=== PATIENT | male | born 1985 | race African-American/Black ===

== ENCOUNTER 2018-12-11 12:15 | Emergency (ER) | payer SELFPAY ==
[~2018-12-11] VITALS: Ht 180.3 cm; Wt 65.8 kg
[2018-12-11 13:15] VITALS: BP 130/81
[2018-12-11] MEDS ORDERED: NAPROXEN 500 MG TABLET PO STA (13:55)
[2018-12-11] MEDS ORDERED: HYDROcodone/APAP 5/325MG 1 TAB TABLET PO ONE (14:00)
[2018-12-11] MEDS ORDERED: AMOX875T PO (14:02)
[2018-12-11] MEDS ORDERED: HYDR-3164 PO (14:02)
--- NOTE | 2018-12-11 14:02 | PHYS DOC ---
Past Medical History Past Medical History: No Pertinent History Past Surgical History: No Surgical History Alcohol Use: None Drug Use: None Adult General Chief Complaint Chief Complaint: DENTAL PROBLEM HPI HPI Patient is a 33 year old male who presents to the ED today complaining of 8 out of 10 left lower gum dental pain that has been going on for 3 days. Patient denies any fever or trismus. He states he has been ashamed of he is teeth until the situation got worse. Review of Systems Review of Systems Constitutional: Denies fever or chills [] HENT: Reports left lower gum dental pain Musculoskeletal: Denies back pain or joint pain [] Integument: Denies rash or skin lesions [] Neurologic: Denies headache, focal weakness or sensory changes [] All other systems were reviewed and found to be within normal limits, except as documented in this note. Allergies Allergies Allergies Coded Allergies Type Severity Reaction Last Updated Verified No Known Drug Allergies 12/11/18 No Physical Exam Physical Exam Constitutional: Well developed, well nourished, no acute distress, non-toxic appearance. [] ENT: Teeth #17, 18, 19, 20 severely decayed. Tooth #18 are 20 are broken no gum erythema, no gum swelling. Skin: Warm, dry, no erythema, no rash. [] Back: No tenderness, no CVA tenderness. [] Extremities: No tenderness, no cyanosis, no clubbing, ROM intact, no edema. [] Neurologic: Alert and oriented X 3, normal motor function, normal sensory function, no focal deficits noted. [] Psychologic: Affect normal, judgement normal, mood normal. [] Current Patient Data Vital Signs Vital Signs Date Time Temp Pulse Resp B/P (MAP) Pulse Ox O2 Delivery O2 Flow Rate FiO2 12/11/18 13:15 99.7 67 16 130/81 (97) 100 Room Air 99.7 EKG EKG [] Radiology/Procedures Radiology/Procedures [] Course & Med Decision Making Course & Med Decision Making Pertinent Labs and Imaging studies reviewed. (See chart for details) Patient has infected dental caries, temperature 99.7 on arrival. Discharge with amoxicillin and [place] for pain. Follow-up with her dentist in the next 1-2 weeks. Dragon Disclaimer Dragon Disclaimer This electronic medical record was generated, in whole or in part, using a voice recognition dictation system. Departure Departure Impression: Primary Impression: Dentalgia Additional Impression: Infected dental caries Disposition: HOME, SELF-CARE Condition: STABLE Referrals: NO PCP (PCP) Follow-up with a dentist in the next 1-2 weeks Patient Instructions: Dental Caries, Dental Pain, [id number] Additional Instructions: You were seen for infected dental caries. We put you on antibiotics, ensure you complete them. Follow-up with her dentist as soon as you can. Scripts Amoxicillin (AMOXICILLIN) 875 Mg Tablet 1 TAB PO BID, #20 TAB Prov: LYNETTE BLAND APRN 12/11/18 Hydrocodone/Apap 5-325 (NORCO 5-325 TABLET) 1 Each Tablet 1 TAB PO Q6-8HRS PRN for PAIN, #8 TAB Prov: LYNETTE BLAND APRN 12/11/18 Problem Qualifiers LYNETTE BLAND APRN Dec 11, 2018 14:02
== END 2018-12-11 14:10 | disposition home or self-care (01) ==
LOC: ER 12:15
DX: S02.5XXA Fracture of tooth (traumatic), initial encounter for closed fracture (principal); K02.9 Dental caries, unspecified; X58.XXXA Exposure to other specified factors, initial encounter; Y93.89 Activity, other specified; Y92.89 Other specified places as the place of occurrence of the external cause; Y99.8 Other external cause status
CPT/HCPCS: 99283